=== PATIENT | female | born 1990 | race Caucasian/White ===

== ENCOUNTER 2016-11-04 11:18 | Emergency (ER) | payer SELFPAY ==
[~2016-11-04] VITALS: Ht 167.6 cm; Wt 43.7 kg
[~2016-11-04 11:18] MED LIST: CLONIDINE HCL0.1 MG PO; OMEPRAZOLE40 M1 PO; PROMETHAZINE12.5 M1 PO; REGLAN10 MG PO; TRAZODONE HCL50 MG PO; ZINC30 MG PO; ZOFRAN4 MG PO
[2016-11-04 12:34] LABS: HEMATOCRIT 43.7 % (36.0-46.0); MCH 31.4 PG (29.0-34.0); MCHC 35.9 G/DL (30.0-36.0); MCV 87.4 FL (83-99); MEAN PLAT.VOLUME 9.9 uM^3 (9.5-12.4); PLATELET COUNT 243 K/uL (156-360); RBC DIS.WIDTH-CV 12.9 % (11.8-14.6); RBC DIS.WIDTH-SD 40.1 % (39-53)
[2016-11-04 12:47] LABS: CHLORIDE 104 mEq/L (99-109); POTASSIUM 3.7 mEq/L (3.7-5.4); SODIUM 136 mEq/L (136-147)
[2016-11-04 12:49] LABS: GLUCOSE 107 mg/dL (70-99)
[2016-11-04 12:50] LABS: ANION GAP 13 MEQ/L (2-14)
[2016-11-04 12:51] LABS: TOTAL BILIRUBIN 0.9 mg/dL (0.0-1.0)
[2016-11-04 12:52] LABS: ALKALINE PHOSPHATASE 46 IU/L (3-129)
[2016-11-04 12:53] LABS: GFR ESTIMATE (CALCULATED) > 59 mL/min/
[2016-11-04 12:54] LABS: UREA NITROGEN (BUN) 9 mg/dL (9-23)
[2016-11-04 12:56] LABS: LIPASE 11 U/L (1.0-51.0)
[2016-11-04 13:02] LABS: QUANTITATIVE HCG < 4.0 MIU/ML
[2016-11-04] MEDS ORDERED: OMEPRAZOLE40 M1 PO (13:12)
[2016-11-04 13:28] LABS: ADD MIUA? YES; BILIRUBIN NEGATIVE; BLOOD SMALL; COLOR DK YELLOW ((YELLOW)); GLUCOSE (STRIP) NEGATIVE; KETONES 15; LEUKOCYTES TRACE; NITRITE NEGATIVE; PH, URINE 6.5 (5-8); PROTEIN (STRIP) 30; SPECIFIC GRAVITY 1.025 (1.000-1.030); UROBILINOGEN 0.2 MG/DL (0.2-1.0)
[2016-11-04 14:00] LABS: BACTERIA 1+; CASTS NONE SEEN /LPF; EPITHELIAL CELLS 1+; MUCUS 3+; RED BLOOD CELLS 0-5 /HPF (0-5); UCUL ADDED? NO; WHITE BLOOD CELLS 0-5 /HPF (0-5)
[2016-11-04 14:01] LABS: CRYSTALS NONE SEEN
[2016-11-04] MEDS ORDERED: CARAFATE1 GM PO (14:16)
[2016-11-04] MEDS ORDERED: PHENERGAN25 MG PR (14:16)
[2016-11-04 14:31] VITALS: BP 135/77
== END 2016-11-04 14:33 | disposition home or self-care (01) ==
LOC: EME → EDBD 11:18 → EME 14:33
DX: K29.00 Acute gastritis without bleeding (principal); J45.909 Unspecified asthma, uncomplicated; F17.200 Nicotine dependence, unspecified, uncomplicated
CPT/HCPCS: 80053; 81003; 83690; 84702; 85027; 99281; 99284

== ENCOUNTER 2017-04-30 16:12 | Emergency (ER) | payer SELFPAY ==
[~2017-04-30] VITALS: Ht 170.2 cm; Wt 53.2 kg
[~2017-04-30 16:12] MED LIST changes: +CARAFATE1 GM PO; +PHENERGAN25 MG PR
[2017-04-30 17:01] LABS: BASOPHIL COUNT 0.1 K/uL (0-0.1); EOSINOPHIL (%) 0.1 % (0-5); HEMATOCRIT 43.7 % (36.0-46.0); IMMATURE GRANULOCYTE (%) 0.7 % (0.0-0.7); IMMATURE GRANULOCYTE COUNT 0.1 K/uL; INSTRUMENT ABS NEUTROPHIL CT 12.9 K/uL; LYMPHOCYTE COUNT 1.2 K/uL (1.0-2.8); MCH 31.4 PG (29.0-34.0); MCV 89.5 FL (83-99); MEAN PLAT.VOLUME 8.6 uM^3 (9.5-12.4); MONOCYTE COUNT 0.6 K/uL (0-0.8); NEUTROPHIL (%) 86.7 % (45-76); NEUTROPHIL COUNT 12.9 K/uL (1.8-6.4); PLATELET COUNT 376 K/uL (156-360); RBC DIS.WIDTH-CV 12.3 % (11.8-14.6); RBC DIS.WIDTH-SD 40.5 % (39-53); RED BLOOD COUNT 4.88 M/uL (3.80-5.20); WHITE BLOOD COUNT 14.8 K/uL (4.1-10.2)
[2017-04-30 17:08] LABS: CHLORIDE 108 mEq/L (99-109); POTASSIUM 3.9 mEq/L (3.7-5.4); SODIUM 140 mEq/L (136-147)
[2017-04-30 17:10] LABS: GLUCOSE 169 mg/dL (70-99)
[2017-04-30 17:11] LABS: ANION GAP 11 MEQ/L (2-14)
[2017-04-30 17:12] LABS: TOTAL BILIRUBIN 0.5 mg/dL (0.0-1.0)
[2017-04-30 17:14] LABS: ALKALINE PHOSPHATASE 54 IU/L (3-129); GFR ESTIMATE (CALCULATED) > 59 mL/min/
[2017-04-30 17:15] LABS: UREA NITROGEN (BUN) 10 mg/dL (9-23)
[2017-04-30 17:17] LABS: LIPASE 7 U/L (1.0-51.0)
[2017-04-30 17:23] LABS: QUANTITATIVE HCG < 4.0 MIU/ML
[2017-04-30 18:42] VITALS: BP 140/105
== END 2017-04-30 18:47 | disposition home or self-care (01) ==
LOC: EME 16:12
PROVIDERS: Emergency Medicine
DX: R11.2 Nausea with vomiting, unspecified (principal); R10.84 Generalized abdominal pain; F17.200 Nicotine dependence, unspecified, uncomplicated
CPT/HCPCS: 80053; 83690; 84702; 85025; 99281; 99285; J2270; J2405; J2765; J7030